=== PATIENT | female | born 1985 | race Caucasian/White ===

== ENCOUNTER 2018-12-24 18:07 | Emergency (ER) | payer OTHER ==
[~2018-12-24] VITALS: Ht 162.6 cm; Wt 90.7 kg
[2018-12-24 18:29] VITALS: BP 120/78
--- NOTE | 2018-12-24 18:42 | NUR ---
c/o throat pain x yesterday---no muffled voice or drooling noted full clear speech
--- NOTE | 2018-12-24 19:05 | NUR ---
REPORT RECIEVED FROM JANE JONATHON.
--- NOTE | 2018-12-24 19:20 | NUR ---
33 Y/O FEMALE CAME INTO ER FOR SOAR THROAT STARTING 12/23/18. STATES THAT SHE HAS A HX OF STREP THROAT. SLIGHT SWELLING AND [place] COLOR TO THROAT. PAIN 4/10 ADULT SCALE. CLEAR SPEACH. INTERMITTENT COUGH. NO SIGNS OF RESP DISTRESS. ABLE TO SWALLOW. TOLERATES FLUIDS WELL. SKIN INTACT. ABLE TO AMBULATE. ALERT AND ORIENTATED TO PERSON PLACE TIME AND EVENT. ABLE TO MAKE NEEDS KNOWN. SAFETY MEASURES IN PLACE. ER MD AWARE. WILL CONTINUE MONITOR.
[2018-12-24 22:29] VITALS: BP 120/78
== END 2018-12-24 20:25 | disposition home or self-care (01) ==
LOC: MED 18:07
DX: J02.8 Acute pharyngitis due to other specified organisms (principal); B97.89 Other viral agents as the cause of diseases classified elsewhere
CPT/HCPCS: 87081; 99283